=== PATIENT | male | born 1955 | race Caucasian/White ===

== ENCOUNTER → 2023-10-23 07:05 | Outpatient (REF) | payer BC, SELFPAY ==
[2023-10-23 10:04] LABS: ALT (SGPT) 25 U/L (0-50); AST (SGOT) 24 U/L (17-59); Albumin 4.5 g/dl (3.5-5.0); Alkaline Phosphatase 69 U/L (38-126); Blood Urea Nitrogen 13 mg/dl (9-20); Calcium 9.8 mg/dl (8.4-10.2); Carbon Dioxide 22 mmol/L (22-30); Chloride 102 mmol/L (98-107); Glucose 126 mg/dl (70-99); Potassium 4.4 mmol/L (3.5-5.1); Sodium 136 mmol/L (135-145); Total Bilirubin 0.4 mg/dl (0.2-1.3); Total Protein 6.9 g/dl (6.3-8.2); eGFR > 60.00
== END ==
LOC: HWLAB 07:05
PROVIDERS: ATTENDING PHYSICIAN Internal Medicine Cardiovascular Disease; FAMILY PHYSICIAN Internal Medicine
DX: R06.02 Shortness of breath (principal)
CPT/HCPCS: 36415; 80053

== ENCOUNTER 2023-10-27 12:36 | Emergency (ER) | payer BC, SELFPAY ==
[2023-10-27 12:39] VITALS: BP 137/81
[2023-10-27 13:07] LABS: COVID-19 Antigen Positive (Negative)
--- NOTE | 2023-10-27 13:23 | ED.GENMED ---
History of Present Illness
General
Chief Complaint: Headache
Source: patient
Exam Limitations: none
Time Seen by Provider: 10/27/23 13:10
Nursing documentation reviewed up to this point in time: agreed with
History of Present Illness
History of Present Illness:
Patient is a 68-year-old male with past medical history of migraines prescribed oxycodone for migraines by his neurologist Dr. Cotter . Patient presents to the ER with complaint of sore throat body aches headaches no fevers. His tested positive
but he did an old home COVID test which was negative. He has had symptoms for the past 5 days. He denies any shortness of breath. He does complain of a mild cough. He is drinking fluids.
Past History
Past History
ED Past Medical History: Other (Cluster headaches, kidney stones); Negative NIDDM
ED Past Surgical History: Other (Lithotripsy, knee surgery for infection)
Social History
Tobacco: Smoker
Personal:
Review of Systems
Review of Systems
Allergies reviewed?: Yes
All Other Systems: ROS reviewed and negative except as documented in HPI and ROS
Constitutional: Reports fatigue; Denies fever
EENT: Reports sore throat
Respiratory: Reports cough; Denies trouble breathing
Cardiac: Reports no symptoms
ABD/GI: Reports no symptoms; Denies nausea or vomiting
Musculoskeletal: Reports no symptoms
Skin: Reports no symptoms
Neurological: Reports headache; Denies dizzy or numbness
Psychiatric: Reports no symptoms
Phy Exam
General Physical Exam
General Presentation: no apparent distress
General age: appears stated age
General Skin: warm and dry
General Habitus: normal
General Mental: alert
General Hydration: appears well hydrated
ENT Exam
ENT Exam: EOMI, neck supple and pharyngeal erythema
Cardiovascular Exam
Cardiovascular Exam: regular rate/rhythm, no murmur and normal peripheral pulses
Pulmonary Exam
Pulmonary Exam: lungs clear and no respiratory distress
Neurological Exam
Neurological Exam: alert and oriented x3
Musculoskeletal Exam
Musculoskeletal Exam: full ROM
Skin Exam
Skin Exam: normal color and warm/dry
Psychiatric Exam
Psychiatric Exam: normal mood/affect
Course
Orders/Labs/Results
Orders:
Orders
10/27/23 12:47
COVID-19 Antigen Urgent
Source: Nasal Swab
10/27/23 13:20
Ketorolac [Toradol] 30 mg IM NOW STA
Oxycodone [Roxicodone] 5 mg PO NOW STA
Abnormal Lab Results
10/27/23
12:47
SARS-CoV-2 Antigen Positive A
(Negative)
Vital Signs
Initial and Last Documented VS:
Initial Vital Signs
Temp Pulse BP Pulse Ox
97.6 F 81 137/81 98
10/27/23 12:39 10/27/23 12:39 10/27/23 12:39 10/27/23 12:39
Last Documented Vital Signs
Temp Pulse BP Pulse Ox
97.6 F 81 137/81 98
10/27/23 12:39 10/27/23 12:39 10/27/23 12:39 10/27/23 12:39
MDM/Problems Addressed
Differential Diagnosis Includes:
Not limited to headache, viral syndrome, COVID
MDM/Problems Addressed:
Patient is a 68-year-old male who presented with 5 days of symptoms including sore throat headache fatigue mild cough denies shortness of breath. His initial COVID test was negative at home but this was an old test. Patient is COVID-positive here.
He presents awake alert no acute distress nonhypoxic, nontachycardic clear lungs. His primary complaint is headache. He reports he has a history of headaches and is treated by neurology and is treated with oxycodone for his headaches. He reports
he did run out of his script. He has not tried any Tylenol Motrin or any other zaxj-bwo-pbijlyv medicines for his symptoms. He is nontoxic no meningismus. Because he is on chronic narcotics will give him 1 dose of oxycodone now for his headache
along with IM Toradol. His last kidney function from October 23, 2023 was normal. I did review her with patient that I will would not be able to fill his narcotic prescription he may follow-up with neurology. He however made to other supportive
measures including increasing fluids Tylenol/ibuprofen close outpatient follow-up. Patient is 5 days with symptoms we will hold off on Paxlovid .he is agreeable.
Chronic conditions affecting care:
chronic headaches on chronic narcotics
*Pulse Oximetry
Patient hypoxic: no
*Critical Care Note
Total Time (30-74mins, 75-104mins- exclusive of procedures): Not Applicable
ED Attending Note
-
Portions of this chart may have been created with voice recognition software.� Occasional wrong word or��sound alike� substitutions may have occurred due to the inherent limitations of voice recognition software.
Discharge Plan
Departure
Patient Disposition: Home (Routine Discharge)
Date of Disposition: 10/27/23
Time of Disposition: 13:28
Patient with high blood pressure during this ER visit?: Yes
Covid-19: Not Applicable
Discharge Problem:
COVID-19, Headache
Instructions: Headache, Adult (DC), COVID-19 ED, BLOOD PRESSURE
Prescriptions:
No Action
citalopram 40 MG tablet
40 mg PO DAILY
Sumavel Dosepro 6 MG
6 mg PO PRN PRN (Reason: pain)
gabapentin 600 MG tablet
1,200 mg PO TID
aspirin 325 MG tablet
325 mg PO DAILY
amitriptyline 100 MG tablet
125 mg PO HS
propranolol [Inderal XL] 120 MG capsule,extended release 24hr
120 mg PO DAILY
[place] 7.5/325:
1 tab PO Q12H
clindamycin HCl 300 MG capsule
300 mg PO TID Qty: 30 0RF
chlorhexidine gluconate 15 ML mouthwash
15 ml PO BID Qty: 1 0RF
oxycodone-acetaminophen 5 MG/325 MG tablet
1 tab PO Q4HPRN PRN (Reason: Severe pain) Qty: 8 0RF
hydrocodone-acetaminophen 1 TABLET tablet
1 tab PO Q4HPRN PRN (Reason: moderate to severe pain) Qty: 20 0RF
Activity Restrictions/Additional Instructions:
As discussed stay well-hydrated. You may alternate between Tylenol and ibuprofen for your symptoms. Follow-up with your family doctor in the next several days for reevaluation return if any worsening of symptoms. Follow-up with your neurologist
for further evaluation of continued headaches
Interventions
Interventions:
*Risk Screen - Suicide Last Done: 10/27/23 12:42
*General Assessment Last Done: 10/27/23 12:42
*Neglect/Abuse Screening Last Done: 10/27/23 12:42
*ED COVID-19 Vaccine History Last Done: 10/27/23 13:23
ED- Neurological Assessment Last Done: 10/27/23 13:23
Discharge Date and Time
Print Language: GERMAN
[2023-10-27] MEDS: TORADOL 30 MG IM (13:27)
[2023-10-27] MEDS: ROXICODONE 5 MG PO (13:27)
[2023-10-27 13:42] VITALS: BP 135/78
== END 2023-10-27 13:57 | disposition home or self-care (01) ==
LOC: EMR 12:36
PROVIDERS: Student in an Organized Health Care Education/Training Program; EMERGENCY PHYSICIAN Emergency Medicine; FAMILY PHYSICIAN Internal Medicine
DX: R51.9 Headache, unspecified (principal); U07.1 COVID-19; R03.0 Elevated blood-pressure reading, without diagnosis of hypertension; F17.200 Nicotine dependence, unspecified, uncomplicated; Z11.52 Encounter for screening for COVID-19
CPT/HCPCS: 99284; 96372; 87811

== ENCOUNTER → 2024-04-25 10:51 | Outpatient (REF) | payer BC, SELFPAY ==
[2024-04-26 20:46] LABS: Amphetamine, Urine Negative ng/mL (Cutoff 300); Barbiturates, Urine Negative ng/mL (Cutoff 200); Benzodiazepines, Urine Negative ng/mL (Cutoff 200); Buprenorphine, Urine Negative ng/mL (Cutoff 5); Carisoprodol, Urine Negative ng/mL (Cutoff 100); Cocaine, Urine Negative ng/mL (Cutoff 150); Creatinine, Urine 340.4 mg/dL (20.0-400.0); Ethyl Glucuronide, Urine Negative ng/mL (Cutoff 500); Fentanyl, Urine Negative ng/mL (Cutoff 1); Marijuana, Urine Negative ng/mL (Cutoff 50); Meperidine, Urine Negative ng/mL (Cutoff 200); Methadone, Urine Negative ng/mL (Cutoff 150); Opiates, Urine Negative ng/mL (Cutoff 300); Oxycodone/Oxymorphone, Urine PresumptivePOS ng/mL (Cutoff 100); PCP (Phencyclidine), Urine Negative ng/mL (Cutoff 25); Propoxyphene, Urine Negative ng/mL (Cutoff 300); Tapentadol, Urine Negative ng/mL (Cutoff 200); Tramadol, Urine Negative ng/mL (Cutoff 100); Zolpidem, Urine Negative ng/mL (Cutoff 20)
== END ==
LOC: REG 10:51
PROVIDERS: ATTENDING PHYSICIAN Specialist; FAMILY PHYSICIAN Internal Medicine
DX: Z09 Encounter for follow-up examination after completed treatment for conditions other than malignant neoplasm (principal); Z79.891 Long term (current) use of opiate analgesic; F11.20 Opioid dependence, uncomplicated
CPT/HCPCS: 36415; 80307

== ENCOUNTER → 2025-01-30 09:19 | Outpatient (REF) | payer BC, SELFPAY ==
[2025-01-30 10:26] LABS: Hematocrit 50.5 % (39.0-52.0); Hemoglobin 16.4 g/dL (13.0-18.0); Mean Corp Hgb Conc. 32.5 g/dL (33.0-37.0); Mean Corpuscular Volume 91.5 fL (80.0-94.0); Nucleated Red Blood Cells % 0 % (-); Platelet Count 220 10^3/uL (130-400); Red Cell Dist. Width 13.8 % (11.5-14.5)
[2025-01-30 13:13] LABS: TSH 2.02 uIU/ml (0.47-4.68)
[2025-01-30 13:17] LABS: ALT (SGPT) 26 U/L (0-50); AST (SGOT) 22 U/L (17-59); Albumin 4.4 g/dl (3.5-5.0); Alkaline Phosphatase 56 U/L (38-126); Blood Urea Nitrogen 16 mg/dl (9-20); Calcium 9.5 mg/dl (8.4-10.2); Carbon Dioxide 29 mmol/L (22-30); Chloride 103 mmol/L (98-107); Glucose 103 mg/dl (70-99); HDL Cholesterol 45 mg/dl; LDL Cholesterol, Calculated 173 mg/dl; Potassium 5.4 mmol/L (3.5-5.1); Sodium 139 mmol/L (135-145); Total Protein 7.0 g/dl (6.3-8.2); Very Low Density Lipoprotein 58 mg/dl (0-30); eGFR > 60.00
== END ==
LOC: REG 09:19
PROVIDERS: ATTENDING PHYSICIAN Internal Medicine
DX: E78.2 Mixed hyperlipidemia (principal); J98.4 Other disorders of lung; Z85.46 Personal history of malignant neoplasm of prostate
CPT/HCPCS: 36415; 80053; 80061; 84153; 84154; 84443; 85025